=== PATIENT | female | born 1970 | race Two or more races ===

== ENCOUNTER 2021-06-25 16:55 | Emergency (ER) | payer SELFPAY ==
[~2021-06-25] VITALS: Ht 162.6 cm; Wt 75.3 kg
--- NOTE | 2021-06-25 17:52 | NUR ---
PT IS IN ROOM #2B. DR PALMER EVALUATED THE PT.
[2021-06-25] MEDS ORDERED: OXYC-128 PO (19:27)
--- NOTE | 2021-06-25 19:58 | NUR ---
Patient discharged to home in stable condition. Written and verbal after care instructions given. Patient verbalizes understanding of instructions. Stressed follow up or return to ER for worsening s/s.
== END 2021-06-25 19:58 | disposition home or self-care (01) ==
LOC: ER 16:55
DX: S52.592A Other fractures of lower end of left radius, initial encounter for closed fracture (principal); S52.615A Nondisplaced fracture of left ulna styloid process, initial encounter for closed fracture; W01.0XXA Fall on same level from slipping, tripping and stumbling without subsequent striking against object, initial encounter; Y92.89 Other specified places as the place of occurrence of the external cause; S80.211A Abrasion, right knee, initial encounter
CPT/HCPCS: 73110; A4663

== ENCOUNTER 2022-03-31 19:37 | Emergency (ER) | payer OTHER ==
[~2022-03-31] VITALS: Ht 162.6 cm; Wt 70.8 kg
[~2022-03-31 19:37] MED LIST: OXYC-128 PO
--- NOTE | 2022-03-31 20:12 | NUR ---
DR BERMEO INTO EVAL PATIENT.
[2022-03-31] MEDS ORDERED: FLUORESCEIN SODIUM 1 MG STRIP OP ONE (20:30)
[2022-03-31] MEDS ORDERED: TETRACAINE HCL 0.5% OPHT DROP 2 ML BOTTLE OP ONE (20:30)
[2022-03-31] MEDS ORDERED: AMOX-427 PO (21:12)
[2022-03-31 21:21] VITALS: BP 125/82
== END 2022-03-31 21:21 | disposition home or self-care (01) ==
LOC: ER 19:40
DX: H04.301 Unspecified dacryocystitis of right lacrimal passage (principal); H57.11 Ocular pain, right eye
CPT/HCPCS: A4663

== ENCOUNTER 2023-02-18 17:15 | Emergency (ER) | payer OTHER ==
[~2023-02-18] VITALS: Ht 167.6 cm; Wt 77.1 kg
[~2023-02-18 17:15] MED LIST changes: +AMOX-427 PO
== END 2023-02-18 18:07 | disposition left against medical advice (07) ==
LOC: ER 17:15
DX: Z53.21 Procedure and treatment not carried out due to patient leaving prior to being seen by health care provider (principal)
CPT/HCPCS: A4663